=== PATIENT | male | born 1940 | race Hispanic/Latino ===

== ENCOUNTER 2021-06-01 15:00 | Emergency (ER) | payer MEDICARE, OTHER ==
[~2021-06-01] VITALS: Ht 162.6 cm; Wt 94.3 kg
[2021-06-01 15:02] VITALS: BP 156/89
[2021-06-01] MEDS ORDERED: TETANUS/DIPHTHERIA TOXOID [ADULT] 0.5 ML VIAL IM ONE ×2 (15:26→15:30)
== END 2021-06-01 15:45 | disposition home or self-care (01) ==
LOC: EDH 15:00
DX: S41.112A Laceration without foreign body of left upper arm, initial encounter (principal); X58.XXXA Exposure to other specified factors, initial encounter; Y93.89 Activity, other specified; Y92.89 Other specified places as the place of occurrence of the external cause; Y99.8 Other external cause status
CPT/HCPCS: 90471; 90714

== ENCOUNTER 2021-07-10 16:00 | Emergency (ER) | payer MEDICARE ==
[~2021-07-10] VITALS: Ht 165.1 cm; Wt 98.4 kg
[2021-07-10 16:15] VITALS: BP 126/67
[2021-07-10] MEDS ORDERED: SULF1TAB42 PO (16:34)
== END 2021-07-10 17:10 | disposition home or self-care (01) ==
LOC: EDH 16:00
DX: L08.9 Local infection of the skin and subcutaneous tissue, unspecified (principal); L72.3 Sebaceous cyst